=== PATIENT | female | born 1995 | race American Indian/Alaskan Native ===

== ENCOUNTER 2017-09-03 17:18 | Emergency (ER) | payer OTHER, BC ==
[2017-09-03] MEDS ORDERED: MOTRIN PO ONE (19:48)
[2017-09-03] MEDS ORDERED: NORCO 5/325 PO ONE (19:48)
[2017-09-03] MEDS ORDERED: ZOFRAN ODT PO ONE (19:48)
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
[2017-09-03 20:20] LABS: HCG Qualitative,Urine Negative (Negative)
--- NOTE | 2017-09-03 20:57 | XRay Report ---
FINAL REPORT EXAM: XR FOOT 3+V RT HISTORY: right foot pain COMPARISON: None available. FINDINGS: Two views of right foot obtained. On the PA view, this faint sclerosis along the bases of the 2nd through 5th metatarsal bones. On the oblique view, this appears relate overlapping of these bony structures. No definite fracture line. Bony structures are intact. Joint spaces are preserved. No acute fracture dislocation. IMPRESSION: No acute bony abnormality.
--- NOTE | 2017-09-03 20:58 | XRay Report ---
FINAL REPORT EXAM: XR KNEE 3V RT HISTORY: rigth knee pain COMPARISON: None available. FINDINGS: Three views of the right knee obtained. Bony structures are intact. Joint spaces are preserved. No acute fracture dislocation. IMPRESSION: No acute bony abnormality.
[2017-09-03 21:20] VITALS: BP 122/72
== END 2017-09-03 22:03 | disposition home or self-care (01) ==
LOC: ED 17:18
DX: S80.02XA Contusion of left knee, initial encounter (principal); F12.10 Cannabis abuse, uncomplicated; Z87.891 Personal history of nicotine dependence; V89.2XXA Person injured in unspecified motor-vehicle accident, traffic, initial encounter; Y93.89 Activity, other specified; Y92.89 Other specified places as the place of occurrence of the external cause; Y99.8 Other external cause status
CPT/HCPCS: 81025; 99284; Q0162